=== PATIENT | male | born 1935 | race Caucasian/White ===

== ENCOUNTER 2021-10-16 18:31 | Inpatient (IN) ==
[2021-10-16] MEDS ORDERED: DUONEB NEB ONE ×2 (18:34→19:02)
[2021-10-16] MEDS ORDERED: SOLU-MEDROL 125 MG IVP ONE (18:34)
[2021-10-16] MEDS ORDERED: SODIUM CHLORIDE 500 ML IV STA ×2 (18:34→19:44)
[2021-10-16 18:47] LABS: BASOPHILS # (AUTO) 0.1 K/uL (0-0.2); BASOPHILS % (AUTO) 0.6 % (0.0-3.0); EOSINOPHILS % (AUTO) 0.1 % (0.0-7.0); HEMATOCRIT 38.9 % (42.0-52.0); HEMOGLOBIN 12.8 g/dl (14.0-18.0); IMMATURE GRANULOCYTE % (AUTO) 0.3 % (0.0-5.0); LYMPHOCYTES # (AUTO) 2.3 K/uL (0.60-3.4); LYMPHOCYTES % (AUTO) 22.3 (10.0-50.0); MEAN CORPUSCULAR HEMOGLOBIN 29.5 pg (27.0-31.0); MEAN CORPUSCULAR HGB CONC 32.9 (31.8-35.4); MEAN CORPUSCULAR VOLUME 89.6 fl (80.0-94.0); MONOCYTES # (AUTO) 0.8 K/uL (0.4-2.0); NEUTROPHILS # (AUTO) 6.9 K/ul (2.0-6.9); NEUTROPHILS % (AUTO) 68.7 % (42.2-75.2); PLATELET COUNT 313 10^3/uL (140-440); RDW COEFFICIENT OF VARIATION 13.6 % (11.6-14.8); RED BLOOD COUNT 4.34 10^6/ul (4.70-6.10); WHITE BLOOD COUNT 10.07 K/ul (4.2-10.2)
[2021-10-16] MEDS ORDERED: ZOFRAN 4 MG/2 ML ONE (18:49)
[2021-10-16 18:56] LABS: ABG O2 HGB 95.1 % (95-100); BEecf -4.3 (-2.0-3.0); COHb 0.8 (0.5-1.5); HCO3 23.6 (21-28); MetHb 0.5 (0-1.5); TCO2 25.4 (19-24); sO2 98.4 % (94-98); tHb 13.6 g/dl (11.7-17.4)
[2021-10-16] MEDS: ZOFRAN 4 MG/2 ML IVP ONE ×2 (18:57→19:51)
--- NOTE | 2021-10-16 19:00 | DI ---
EXAM: Single view of the chest. History: Short of breath Findings: Heart size is upper limits of normal. Sternotomy wires. Atherosclerotic vascular calcifi cations. There is interstitial edema and more focal right lower lobe consolidation. Small right ple ural effusion. No pneumothorax. No acute osseous abnormalities. Impression: 1. Interstitial edema. 2. Right lower lobe pneumonia. 3. Small right pleural effusion
[2021-10-16 19:01] LABS: ABG PH 7.21 (7.35-7.45)
[2021-10-16 19:06] LABS: ALANINE AMINOTRANSFERASE 18.2 U/L (0-50); ALBUMIN 4.95 g/dL (3.5-5.0); BILIRUBIN,TOTAL 0.73 mg/dL (0.2-1.3); BLOOD UREA NITROGEN 21.1 mg/dL (9-20); CALCIUM 8.89 mg/dL (8.4-10.2); CARBON DIOXIDE 21.4 mmol/L (22-30.0); CHLORIDE 106.3 mmol/L (98-107); CREATININE 1.03 mg/dL (0.60-1.10); GLUCOSE 237.3 mg/dL (74-106); POTASSIUM 4.43 mmol/L (3.5-5.1); SODIUM 139.3 mmol/L (134.5-145); TOTAL PROTEIN 7.68 g/dL (6.3-8.2)
[2021-10-16 19:18] LABS: TROPONIN I < 0.012 ng/ml (0.0000-0.120)
[2021-10-16] MEDS ORDERED: ROCEPHIN 1 GM/50 ML D5W 1 GM/50 ML BAG IV ONE (19:38)
[2021-10-16] MEDS ORDERED: ZITHROMAX PO ONE (19:38)
[2021-10-16] MEDS ORDERED: LASIX IVP ONE (19:38)
[2021-10-16] MEDS ORDERED: SODIUM BICARBONATE 8.4% IVP ONE ×2 (19:43)
[2021-10-16] MEDS ORDERED: ZOFRAN 4 MG/2 ML IVP ONE (19:56)
[2021-10-16] MEDS ORDERED: MORPHINE 2 MG/ML VIAL IVP STA (19:56)
[2021-10-16] MEDS ORDERED: URO-JET MUCOUSMEMB STA (20:08)
--- NOTE | 2021-10-16 20:29 | CT ---
EXAM: CTA of the chest. History: Persistent shortness of breath Comparison: Chest radiograph 10/16/2021 Technique: Multiplanar CT images through the thorax were obtained following administration of IV con trast. MIP images and 3-D reconstructions were also provided. Findings: Heart is mildly enlarged. No pericardial effusion. Coronary calcifications and sternotom y wires. No thoracic aortic aneurysm. No pulmonary arterial filling defects. No axillary lymphaden opathy. There are mildly enlarged mediastinal and hilar lymph nodes. Interstitial pulmonary edema a nd a small to moderate right pleural effusion and small left pleural effusion. Dependent lung opacit ies represent atelectasis. No pneumothorax. No suspicious lung masses or lung nodules. Within the visualized upper abdomen, no acute findings. Small cyst within the left kidney. Status p ost cholecystectomy. Mild nodular thickening of the bilateral adrenal glands. No acute osseous abno rmalities. Impression: 1. No pulmonary embolism. 2. Cardiomegaly with interstitial pulmonary edema and bilateral pleural effusions. 3. Coronary artery disease 4. Nonspecific enlarged intrathoracic lymph nodes could be reactive or neoplastic. Recommend follow up. 5. Mild nodular thickening of the bilateral adrenal glands is likely benign. Recommend close attent ion to on follow-up All CT scans are performed using dose optimization techniques as appropriate to the performed exam an d include at least one of the following: Automated exposure control, adjustment of the mA and/or kV according t o size, and the use of iterative reconstruction technique.
[2021-10-16 20:38] LABS: ABG O2 HGB 94.1 % (95-100); ABG PH 7.35 (7.35-7.45); BEecf 6.4 (-2.0-3.0); COHb 2.8 (0.5-1.5); HCO3 32 (21-28); MetHb 0.2 (0-1.5); TCO2 33.8 (19-24); sO2 99.1 % (94-98); tHb 12.4 g/dl (11.7-17.4)
[2021-10-17] MEDS ORDERED: DUONEB NEB PRN (04:45)
[2021-10-17] MEDS ORDERED: ZITHROMAX PO ONE ×2 (04:45→09:00)
[2021-10-17] MEDS ORDERED: TYLENOL PO PRN (04:56)
[2021-10-17] MEDS ORDERED: SOLU-MEDROL 125 MG IVP SCH (05:00)
--- NOTE | 2021-10-17 05:04 | ED.PDOC ---
General ED Provider: Dr. DEBORAH JONES MD Chief Complaint: Chest Pain Stated Complaint: left chest pain and severe SOB x this PM. Time Seen by Provider: 10/16/21 18:33 Mode of Arrival: Wheelchair Information Source: Patient Exam Limitations: No limitations Primary Care Provider: ROXANE Duffy Nursing and Triage Documentation Reviewed and Agree: Yes Does patient meet sepsis criteria?: No If yes, has appropriate treatment been initiated?: No System Inflammatory Response Syndrome: Not Applicable Sepsis Protocol: For patient's 13 years and over: Temp is 96.8 and below OR 101 and greater Pulse >90 BPM Resp >20/minute Acutely Altered Mental Status Are patient's symptoms suggestive of a new infection, such as: -Pneumonia -Skin, Soft Tissue -Endocarditis -UTI -Bone, Joint Infection -Implantable Device -Acute Abdominal Infection -Wound Infection -Meningitis -Blood Stream Catheter Infection -Unknown Respiratory Complaint Exam Shortness of Air Complaint/Exam Onset/Duration: this PM Symptoms Are: Worse Timing: Constant and Intermittent Initial Severity: Moderate Current Severity: Moderate Character: Reports Dyspnea at rest Aggravating: Reports None Alleviating: Reports None Associated Signs and Symptoms: Reports Wheezing, Chest pain with cough, Chest pain and Labored breathing History of Healthcare-Acquired Pneumonia: No Cardiac Risk Factors: Reports Elevated lipids and Hypertension Recent Stress Test: No Recent Echo/LV Function: No Respiratory Distress: Moderate Stridor Present: No Tracheal Deviation: No Subcutaneous Emphysema: No Accessory Muscle Use: Yes Retractions: Not Present Unable to Speak Full Sentences: Yes Fatigue: Yes Leg Swelling: No Donte's Sign Present: No Grunting Respirations: No Kussmaul Respirations: No Differential Diagnoses: Asthma, CHF, Pulmonary Edema, COPD Exacerbation, Pneumonia, Pulmonary Embolism, Bronchitis, Bronchospasm and URI Review of Systems Review Of Systems Constitutional: Reports Weakness Respiratory: Reports Short of air Cardiac: Reports Chest pain All Other Systems: Reviewed and Negative [facility] Medical History Angina at rest Coronary artery arteriosclerosis Diabetes mellitus Gastroesophageal reflux disease with hiatal hernia Melanoma Peripheral vascular disease Surgical History History of cholecystectomy History of coronary artery bypass graft Physical Exam Physical Exam Appearance: Reports Ill-appearing Ill-appearing: Moderate Pain Distress: Moderate Eyes: Reports SAMUEL, EOMI and Conjunctiva clear ENT: Reports Ears normal, Nose normal and Oropharynx normal Neck: Supple Respiratory: Reports Breath sounds equal, Crackles, Rhonchi, Wheezes and Retractions Cardiovascular: Reports Tachycardia GI/: Reports Soft, Nontender, No masses and Bowel sounds normal Musculoskeletal: Reports Normal strength and ROM intact Skin: Reports Warm and Dry Neurological: Reports Sensation intact, Motor intact, Reflexes intact, Cranial nerves intact, Alert and Oriented Psychiatric: Reports Affect appropriate and Anxious Interpretation Radiology Interpretation Radiology Interpretation By: Radiologist Radiology Results: Positive Exam Interpreted: CT Scan Xray Comments: see the reports. Re-Evaluation Re-Evaluation Time of Re-Evaluation: 19:28 Status: Unchanged Vital Signs Stable: No Pain Level: 3 Lungs: Other (crackles, rhonchi and wheezes.) Skin: Warm and Dry Neuro: Alert and Oriented X3 CV: RRR Critical Care Note Critical Care Note Total Critical Care Time (mins): 45 Course Course Hematology/Chemistry: 10/16/21 18:12 10/16/21 18:12 Orders, Labs, Meds: Lab Review 10/16/21 10/16/21 10/16/21 18:12 18:12 18:12 WBC 10.07 RBC 4.34 L Hgb 12.8 L Hct 38.9 L MCV 89.6 MCH 29.5 MCHC 32.9 RDW Coeff of Wu 13.6 Plt Count 313 Immature Gran % (Auto) 0.3 Neut % (Auto) 68.7 Lymph % (Auto) 22.3 [place] % (Auto) 8.0 Eos % (Auto) 0.1 Baso % (Auto) 0.6 Neut # (Auto) 6.9 Lymph # (Auto) 2.3 [place] # (Auto) 0.8 Eos # (Auto) 0.0 Baso # (Auto) 0.1 Immature Gran # (Auto) 0.0 Puncture Site Base Excess O2 Saturation ABG pH ABG pCO2 ABG pO2 ABG HCO3 ABG Total CO2 Lorenzo Test Hemoglobin Oxyhemoglobin Carboxyhemoglobin Total Hemoglobin O2 Delivery Device Oxygen Liter Flow FiO2 % Sodium 139.3 Potassium 4.43 Chloride 106.3 Carbon Dioxide 21.4 L Anion Gap 16.03 BUN 21.1 H Creatinine 1.03 Estimated GFR (MDRD) 69.00 BUN/Creatinine Ratio 20.48 Glucose 237.3 H Lactic Acid 2.42 H Calcium 8.89 Total Bilirubin 0.73 AST 22.0 ALT 18.2 Alkaline Phosphatase 113.0 Troponin I < 0.012 NT-Pro-B Natriuret Pep 1450.000 H Total Protein 7.68 Albumin 4.95 Globulin 2.73 Albumin/Globulin Ratio 1.81 SARS-CoV-2 Ag (Rapid) 10/16/21 10/16/21 10/16/21 18:50 20:30 20:50 WBC RBC Hgb Hct MCV MCH MCHC RDW Coeff of Wu Plt Count Immature Gran % (Auto) Neut % (Auto) Lymph % (Auto) [place] % (Auto) Eos % (Auto) Baso % (Auto) Neut # (Auto) Lymph # (Auto) [place] # (Auto) Eos # (Auto) Baso # (Auto) Immature Gran # (Auto) Puncture Site Rr [place] Excess -4.3 L 6.4 H O2 Saturation 98.4 H 99.1 H ABG pH 7.21 L* 7.35 ABG pCO2 59.0 H 58.0 H ABG pO2 133.0 H 140.0 H ABG HCO3 23.6 32 H ABG Total CO2 25.4 H 33.8 H Lorenzo Test + + Hemoglobin 0.5 0.2 Oxyhemoglobin 95.1 94.1 L Carboxyhemoglobin 0.8 2.8 H Total Hemoglobin 13.6 12.4 O2 Delivery Device Non rebreather Nrb Oxygen Liter Flow 15.00 15.00 FiO2 % 100.0 100.0 Sodium Potassium Chloride Carbon Dioxide Anion Gap BUN Creatinine Estimated GFR (MDRD) BUN/Creatinine Ratio Glucose Lactic Acid Calcium Total Bilirubin AST ALT Alkaline Phosphatase Troponin I NT-Pro-B Natriuret Pep Total Protein Albumin Globulin Albumin/Globulin Ratio SARS-CoV-2 Ag (Rapid) Negative Orders Category Date Time Status ABG DRAW REQUEST Stat CARDIO 10/16/21 18:35 Completed ABG DRAW REQUEST Stat CARDIO 10/16/21 20:30 Completed EKG-(ED ONLY) Stat CARDIO 10/16/21 18:34 Completed VAPOTHERM Routine CARDIO 10/16/21 19:02 Ordered NPO REMINDER: IMAGING ONCE CARE 10/16/21 18:49 Completed ED CATHETER INSERTION AND CARE .ONCE EMERGENCY 10/16/21 20:08 Active Saline Lock [ED IV/MEDIPORT/POWERPORT] .ONCE EMERGENCY 10/16/21 18:34 Active ABG COOX Stat LAB 10/16/21 18:50 Completed ABG COOX Stat LAB 10/16/21 20:30 Completed BLOOD CULTURE (ED ONLY) Stat LAB 10/16/21 20:07 Received CBC W/ AUTO DIFF Stat LAB 10/16/21 18:12 Completed COMPREHENSIVE METABOLIC PANEL Stat LAB 10/16/21 18:12 Completed COVID-19 ANTIGEN TEST Stat LAB 10/16/21 20:50 Completed LACTIC ACID Stat LAB 10/16/21 18:12 Completed NT-PROBNP Stat LAB 10/16/21 18:12 Completed TROPONIN I Stat LAB 10/16/21 18:12 Completed 0.9 % Sodium Chloride [Saline Flush] MEDS 10/16/21 18:34 Active 1 syr IVF PRN PRN Azithromycin [Zithromax] MEDS 10/16/21 19:38 Discontinued 500 mg PO ONCE ONE Ceftriaxone/D5w 1 gm Premix [Rocephin 1 gm/50 ml D5w] MEDS 10/16/21 19:38 Discontinued 1 gm in 50 ml IV ONCE Furosemide [Lasix] MEDS 10/16/21 19:38 Discontinued 80 mg IVP ONCE ONE Ipratropium/Albuterol Neb [Duoneb] MEDS 10/16/21 18:34 Discontinued 3 ml NEB ONCE ONE Ipratropium/Albuterol Neb [Duoneb] MEDS 10/16/21 19:02 Discontinued 3 ml NEB ONCE ONE Lidocaine (Uro-Jet) [Uro-Jet] MEDS 10/16/21 20:08 Discontinued 10 ml MUCOUSMEMB ONCE STA Methylprednisolone Sod Succ/Pf [Solu-Medrol 125 mg] MEDS 10/16/21 18:34 Discontinued 125 mg IVP ONCE ONE Morphine Sulfate [Morphine 2 mg/ml Vial] MEDS 10/16/21 19:56 Discontinued 2 mg IVP ONCE STA Ondansetron HCl/Pf [Zofran 4 mg/2 ml] MEDS 10/16/21 18:49 Discontinued 4 mg .ROUTE .STK-MED ONE Ondansetron HCl/Pf [Zofran 4 mg/2 ml] MEDS 10/16/21 18:48 Discontinued 4 mg IVP ONCE ONE Ondansetron HCl/Pf [Zofran 4 mg/2 ml] MEDS 10/16/21 19:56 Discontinued 4 mg IVP ONCE ONE Sodium Bicarb 8.4% Syringe [Sodium Bicarbonate 8.4%] MEDS 10/16/21 19:43 Discontinued 50 meq IVP ONCE ONE Sodium Bicarb 8.4% Syringe [Sodium Bicarbonate 8.4%] MEDS 10/16/21 19:43 Discontinued 50 meq IVP ONCE ONE Sodium Chloride 0.9% [Sodium Chloride] 500 ml MEDS 10/16/21 18:34 Discontinued IV BOLUS Sodium Chloride 0.9% [Sodium Chloride] 500 ml MEDS 10/16/21 19:44 Discontinued IV BOLUS CTA ANGIO CHEST Stat RADS 10/16/21 18:48 Completed CXR [CHEST, 1V AP ONLY] Stat RADS 10/16/21 18:34 Completed Medications Generic Name Dose Route Start Last Admin Trade Name Freq PRN Reason Stop Dose Admin Albuterol/Ipratropium 3 ml 10/17/21 04:45 Ipratropium/Albuterol Vial.Navin NEB RTQ6H PRN Wheezing Furosemide 40 mg 10/17/21 06:30 Furosemide Inj 40 Mg/4 Ml Vial IVP BIDAC HERBERT CEFTRIAXONE/D5W 1 GM PREMIX 1 gm in 50 mls @ 75 mls/hr 10/17/21 09:00 Rocephin 1 Gm/50 Ml D5w IV 10/20/21 08:59 DAILY HERBERT Methylprednisolone Sodium Succinate 125 mg 10/17/21 05:00 Methylprednisolone Sod Succ/Pf 125 Mg/2 Ml Vial IVP Q8HR HERBERT Sodium Chloride 1 syr 10/16/21 18:34 10/16/21 19:52 0.9% Sodium Chloride 10 Ml Disp.Syrin IVF 1 syr PRN PRN Administration To flush IV Sodium Chloride 1 syr 10/17/21 05:00 0.9% Sodium Chloride 10 Ml Disp.Syrin IVF Q8HR HERBERT Discontinued Medications Generic Name Dose Route Start Last Admin Trade Name Freq PRN Reason Stop Dose Admin Albuterol/Ipratropium 3 ml 10/16/21 18:34 10/16/21 18:57 Ipratropium/Albuterol Vial.Navin CABRALES 10/16/21 18:35 3 ml ONCE ONE Administration Albuterol/Ipratropium 3 ml 10/16/21 19:02 10/16/21 19:33 Ipratropium/Albuterol Vial.Navin [facility] 10/16/21 19:03 3 ml ONCE ONE Administration Azithromycin 500 mg 04/26/22 19:38 10/16/21 21:18 Azithromycin 250 Mg Tablet PO 10/16/21 19:39 500 mg ONCE ONE Administration Azithromycin 500 mg 10/17/21 04:45 Azithromycin 250 Mg Tablet PO 10/17/21 04:46 ONCE ONE Furosemide 80 mg 10/16/21 19:38 10/16/21 19:51 Furosemide Inj 100 Mg/10 Ml Vial IVP 10/16/21 19:39 80 mg ONCE ONE Administration Sodium Chloride 500 mls @ 500 mls/hr 10/16/21 18:34 10/16/21 21:19 Sodium Chloride IV 10/16/21 19:33 500 mls/hr BOLUS STA Administration CEFTRIAXONE/D5W 1 GM PREMIX 1 gm in 50 mls @ 75 mls/hr 10/16/21 19:38 10/16/21 20:08 Rocephin 1 Gm/50 Ml D5w IV 10/16/21 20:17 75 mls/hr ONCE ONE Administration Sodium Chloride 500 mls @ 500 mls/hr 10/16/21 19:44 10/16/21 21:35 Sodium Chloride IV 10/16/21 20:43 500 mls/hr BOLUS STA Administration Lidocaine HCl 10 ml 10/16/21 20:08 10/16/21 21:36 Lidocaine 10 Ml Jel.Pf.Day (Urojet) MUCOUSMEMB 10/16/21 20:09 10 ml ONCE STA Administration Methylprednisolone Sodium Succinate 125 mg 10/16/21 18:34 10/16/21 18:57 Methylprednisolone Sod Succ/Pf 125 Mg/2 Ml Vial IVP 10/16/21 18:35 125 mg ONCE ONE Administration Morphine Sulfate 2 mg 10/16/21 19:56 10/16/21 20:04 Morphine Sulfate 2 Mg/Ml Vial IVP 10/16/21 19:57 2 mg ONCE STA Administration Ondansetron HCl 4 mg 10/16/21 18:48 10/16/21 19:51 Ondansetron Hcl/Pf 4 Mg/2 Ml Sdv IVP 10/16/21 18:49 4 mg ONCE ONE Administration Ondansetron HCl 4 mg 10/16/21 19:56 10/16/21 21:34 Ondansetron Hcl/Pf 4 Mg/2 Ml Sdv IVP 10/16/21 19:57 4 mg ONCE ONE Administration Sodium Bicarbonate 50 meq 10/16/21 19:43 10/16/21 19:51 Sodium Bicarbonate 50 Meq/50 Ml Disp.Syrin IVP 10/16/21 19:44 50 meq ONCE ONE Administration Sodium Bicarbonate 50 meq 10/16/21 19:43 10/16/21 19:51 Sodium Bicarbonate 50 Meq/50 Ml Disp.Syrin IVP 10/16/21 19:44 50 meq ONCE ONE Administration Vital Signs: Temp Pulse Resp BP Pulse Ox 10/17/21 02:15 96 10/16/21 21:54 100 10/16/21 19:31 100 10/16/21 18:44 97.8 F 93 H 18 178/106 H 100 Discharge Plan Discharge Patient Disposition: ADMITTED INPATIENT Discharge Problem: Chest pain, CHF (congestive heart failure), Pneumonia ED Provider: DEBORAH JONES Condition: Serious Physician Progress Note: []Pt was ill but stable. He was d/w Hospitalist but not accepted for transfer. Pt for admission here with consult to Dr Hahn.
[2021-10-17 05:53] VITALS: BMI 26.3
[2021-10-17 06:00] LABS: HEMATOCRIT 33.4 % (42.0-52.0); HEMOGLOBIN 11.3 g/dl (14.0-18.0); MEAN CORPUSCULAR HEMOGLOBIN 29.4 pg (27.0-31.0); MEAN CORPUSCULAR HGB CONC 33.8 (31.8-35.4); PLATELET COUNT 214 10^3/uL (140-440); RDW COEFFICIENT OF VARIATION 13.6 % (11.6-14.8); RED BLOOD COUNT 3.84 10^6/ul (4.70-6.10); WHITE BLOOD COUNT 7.95 K/ul (4.2-10.2)
[2021-10-17 06:11] LABS: ANISOCYTOSIS NOT PRESENT (NOT PRESENT)
[2021-10-17 06:15] LABS: ALANINE AMINOTRANSFERASE 17.8 U/L (0-50); ALBUMIN 4.38 g/dL (3.5-5.0); ALKALINE PHOSPHATASE 72.4 U/L (56-119); BILIRUBIN,TOTAL 0.72 mg/dL (0.2-1.3); BLOOD UREA NITROGEN 20.9 mg/dL (9-20); CALCIUM 8.49 mg/dL (8.4-10.2); CARBON DIOXIDE 25.9 mmol/L (22-30.0); CHLORIDE 102.6 mmol/L (98-107); CREATININE 1.06 mg/dL (0.60-1.10); GLUCOSE 230.2 mg/dL (74-106); POTASSIUM 3.95 mmol/L (3.5-5.1); SODIUM 136.7 mmol/L (134.5-145); TOTAL PROTEIN 6.8 g/dL (6.3-8.2)
[2021-10-17 06:17] LABS: ABG O2 HGB 94.9 % (95-100); COHb 1.7 (0.5-1.5); HCO3 26.5 (21-28); MetHb 0.4 (0-1.5); TCO2 27.5 (19-24); sO2 99.8 % (94-98); tHb 11.7 g/dl (11.7-17.4)
[2021-10-17 06:18] LABS: ABG PH 7.54 (7.35-7.45)
[2021-10-17] MEDS ORDERED: LASIX IVP SCH (06:30)
[2021-10-17] MEDS ORDERED: ASPIRIN EC PO SCH (08:30)
[2021-10-17] MEDS ORDERED: COREG PO SCH (08:30)
[2021-10-17 08:38] LABS: TROPONIN I 0.052 ng/ml (0.0000-0.120)
[2021-10-17] MEDS ORDERED: ZETIA PO SCH (09:00)
[2021-10-17] MEDS ORDERED: IMDUR PO SCH (09:00)
[2021-10-17] MEDS ORDERED: RANEXA PO SCH (09:00)
[2021-10-17] MEDS ORDERED: COZAAR PO SCH (09:00)
[2021-10-17] MEDS ORDERED: PRASUGREL 10 MG PO SCH (09:00)
[2021-10-17] MEDS ORDERED: FERROUS SULFATE PO SCH (09:00)
[2021-10-17] MEDS ORDERED: LOPID PO SCH (09:00)
[2021-10-17] MEDS ORDERED: NORVASC PO SCH (09:00)
[2021-10-17] MEDS ORDERED: LIPITOR PO SCH (09:00)
[2021-10-17] MEDS: NITROSTAT SL PRN ×4 (09:36→10:40)
[2021-10-17] MEDS ORDERED: ZOFRAN 4 MG/2 ML IVP PRN (09:39)
[2021-10-17] MEDS ORDERED: ZOFRAN 4 MG/2 ML IVP ONE (09:39)
[2021-10-17] MEDS ORDERED: MORPHINE 4 MG/ML SYRINGE IVP STA (09:40)
[2021-10-17 09:47] VITALS: BP 160/78; TEMP 98.5
[2021-10-17] MEDS ORDERED: MORPHINE 2 MG/ML VIAL IVP ONE (10:00)
[2021-10-17 10:09] LABS: ABG PH 7.52 (7.35-7.45)
[2021-10-17 10:10] LABS: ABG O2 HGB 92.8 % (95-100); BEecf 0 (-2.0-3.0); COHb 0.8 (0.5-1.5); HCO3 22.9 (21-28); MetHb 0.6 (0-1.5); TCO2 23.8 (19-24); sO2 94.3 % (94-98); tHb 12.4 g/dl (11.7-17.4)
[2021-10-17] MEDS ORDERED: NITROGLYCERIN 25 MG/250 ML IV SCH (10:30)
[2021-10-17] MEDS ORDERED: [UNRECOGNIZED DRUG - OTHER] IV SCH (10:30)
[2021-10-17] MEDS ORDERED: LASIX IVP STA ×2 (11:00→11:09)
[2021-10-17] MEDS ORDERED: DECADRON ONE (11:02)
[2021-10-17] MEDS ORDERED: LASIX ONE (11:02)
[2021-10-17] MEDS ORDERED: LASIX IM STA (11:02)
[2021-10-17] MEDS ORDERED: DECADRON IVP ONE (11:02)
[2021-10-17] MEDS ORDERED: LOPRESSOR IVP ONE (11:06)
[2021-10-17] MEDS ORDERED: HUMULIN R IV ONE (11:21)
[2021-10-17] MEDS ORDERED: HUMULIN R ONE (11:28)
[2021-10-17] MEDS ORDERED: ROCEPHIN 1 GM/50 ML D5W 1 GM/50 ML BAG IV SCH (21:00)
--- NOTE | 2021-10-18 23:10 | PCM.DC ---
Final Diagnosis: Acute Coronary Syndrome Admit and Discharge on 10/17/21 Physical Exam Appearance: Ill-appearing Ill-appearing: Mild Pain Distress: Moderate Eyes: SAMUEL ENT: Oropharynx normal Neck: Supple Respiratory: Breath sounds diminished and Crackles Cardiovascular: RRR GI/: Soft and Nontender Musculoskeletal: Limited ROM and Limited strength Skin: Warm and Dry Neurological: Sensation intact, Motor intact and Alert Psychiatric: Affect appropriate, Mood appropriate and Anxious (1) Acute coronary syndrome: Status: Acute Code(s): I24.9 - Acute ischemic heart disease, unspecified SNOMED Code(s): 137892254 (2) CHF (congestive heart failure): Status: Acute Code(s): I50.9 - Heart failure, unspecified SNOMED Code(s): 33302222 Reason for Hospitalization: Admit with CHF exacerbation, and possible mild pneumonia. Prognosis/Condition at Discharge: Fair, guarded. Medications at Discharge: Ambulatory Orders Medication Instructions Recorded amlodipine 2.5 mg tablet (Norvasc) 10 mg PO DAILY 09/14/13 aspirin 81 mg tablet,delayed 1 tab PO DAILY 09/14/13 release atorvastatin 80 mg tablet (Lipitor) 40 mg PO DAILY 09/14/13 carvedilol 6.25 mg tablet 1 tab PO BID 09/14/13 ezetimibe 10 mg tablet (Zetia) 1 tab PO DAILY 09/14/13 gemfibrozil 600 mg tablet 1 tab PO BID 09/14/13 losartan 50 mg tablet 1 tab PO DAILY 09/14/13 metformin 500 mg tablet 1 tab PO BID 09/14/13 buczmgcv-lxb-udgyn 200 mcg-lycop 1 tab PO DAILY 09/14/13 175 mcg-lutei 250 mcg-herb 178 tablet (Sg Multivitamin For Men) fznpmqga-asm-giefo acid 0.4 1 tab PO DAILY 09/14/13 mg-lycopene 300 mcg-lutein 250 mcg tablet (Centrum Silver) omeprazole 20 mg capsule,delayed 1 tab PO DAILY 09/14/13 release sitagliptin 100 mg tablet (Januvia) 1 tab PO DAILY 09/14/13 vit C 150 mg-vit E 30 unit-lutein 1 tab PO DAILY 09/14/13 5 xl-vozrlagc-dkfxb 3 150 mg capsule ferrous sulfate 325 mg (65 mg 325 mg PO DAILY 10/16/21 iron) tablet (Iron (ferrous sulfate)) glimepiride 1 mg tablet 1 mg PO 2 TIMES PER WEEK 10/16/21 isosorbide mononitrate 120 mg 120 mg PO DAILY 10/16/21 tablet,extended release 24 hr ranolazine 1,000 mg 1,000 mg PO DAILY 10/16/21 tablet,extended release,12 hr icosapent ethyl 1 gram capsule 1 g PO BID 10/17/21 (Vascepa) pantoprazole 40 mg tablet,delayed 40 mg PO DAILY 10/17/21 release (Protonix) prasugrel 5 mg tablet (Effient) 5 mg PO DAILY 10/17/21 Lab/Diagnostics: Laboratory Tests 10/16/21 10/16/21 10/16/21 18:12 18:12 18:12 WBC 10.07 RBC 4.34 L Hgb 12.8 L Hct 38.9 L MCV 89.6 MCH 29.5 MCHC 32.9 RDW Coeff of Wu 13.6 Plt Count 313 Immature Gran % (Auto) 0.3 Neut % (Auto) 68.7 Lymph % (Auto) 22.3 [place] % (Auto) 8.0 Eos % (Auto) 0.1 Baso % (Auto) 0.6 Neut # (Auto) 6.9 Lymph # (Auto) 2.3 [place] # (Auto) 0.8 Eos # (Auto) 0.0 Baso # (Auto) 0.1 Immature Gran # (Auto) 0.0 Neutrophils % (Manual) Lymphocytes % (Manual) Monocytes % (Manual) Anisocytosis Puncture Site Base Excess O2 Saturation ABG pH ABG pCO2 ABG pO2 ABG HCO3 ABG Total CO2 Lorenzo Test Hemoglobin Oxyhemoglobin Carboxyhemoglobin Total Hemoglobin O2 Delivery Device Oxygen Liter Flow FiO2 % Sodium 139.3 Potassium 4.43 Chloride 106.3 Carbon Dioxide 21.4 L Anion Gap 16.03 BUN 21.1 H Creatinine 1.03 Estimated GFR (MDRD) 69.00 BUN/Creatinine Ratio 20.48 Glucose 237.3 H Lactic Acid 2.42 H Calcium 8.89 Total Bilirubin 0.73 AST 22.0 ALT 18.2 Alkaline Phosphatase 113.0 Total Creatine Kinase Troponin I < 0.012 NT-Pro-B Natriuret Pep 1450.000 H Total Protein 7.68 Albumin 4.95 Globulin 2.73 Albumin/Globulin Ratio 1.81 SARS-CoV-2 Ag (Rapid) 10/16/21 10/16/21 10/16/21 18:50 20:30 20:50 WBC RBC Hgb Hct MCV MCH MCHC RDW Coeff of Wu Plt Count Immature Gran % (Auto) Neut % (Auto) Lymph % (Auto) [place] % (Auto) Eos % (Auto) Baso % (Auto) Neut # (Auto) Lymph # (Auto) [place] # (Auto) Eos # (Auto) Baso # (Auto) Immature Gran # (Auto) Neutrophils % (Manual) Lymphocytes % (Manual) Monocytes % (Manual) Anisocytosis Puncture Site Rr [place] Excess -4.3 L 6.4 H O2 Saturation 98.4 H 99.1 H ABG pH 7.21 L* 7.35 ABG pCO2 59.0 H 58.0 H ABG pO2 133.0 H 140.0 H ABG HCO3 23.6 32 H ABG Total CO2 25.4 H 33.8 H Lorenzo Test + + Hemoglobin 0.5 0.2 Oxyhemoglobin 95.1 94.1 L Carboxyhemoglobin 0.8 2.8 H Total Hemoglobin 13.6 12.4 O2 Delivery Device Non rebreather Nrb Oxygen Liter Flow 15.00 15.00 FiO2 % 100.0 100.0 Sodium Potassium Chloride Carbon Dioxide Anion Gap BUN Creatinine Estimated GFR (MDRD) BUN/Creatinine Ratio Glucose Lactic Acid Calcium Total Bilirubin AST ALT Alkaline Phosphatase Total Creatine Kinase Troponin I NT-Pro-B Natriuret Pep Total Protein Albumin Globulin Albumin/Globulin Ratio SARS-CoV-2 Ag (Rapid) Negative 10/17/21 10/17/21 10/17/21 05:55 05:55 05:55 WBC 7.95 RBC 3.84 L Hgb 11.3 L Hct 33.4 L MCV 87.0 MCH 29.4 MCHC 33.8 RDW Coeff of Wu 13.6 Plt Count 214 D Immature Gran % (Auto) Neut % (Auto) Lymph % (Auto) [place] % (Auto) Eos % (Auto) Baso % (Auto) Neut # (Auto) Lymph # (Auto) [place] # (Auto) Eos # (Auto) Baso # (Auto) Immature Gran # (Auto) Neutrophils % (Manual) 89.0 H Lymphocytes % (Manual) 7.0 L Monocytes % (Manual) 4.0 Anisocytosis Not present Puncture Site Lbrac Base Excess 4.0 H O2 Saturation 99.8 H ABG pH 7.54 H* ABG pCO2 31.0 L ABG pO2 193.0 H ABG HCO3 26.5 ABG Total CO2 27.5 H Lorenzo Test + Hemoglobin 0.4 Oxyhemoglobin 94.9 L Carboxyhemoglobin 1.7 H Total Hemoglobin 11.7 O2 Delivery Device Vapotherm Oxygen Liter Flow FiO2 % 60.0 Sodium 136.7 Potassium 3.95 Chloride 102.6 Carbon Dioxide 25.9 Anion Gap 12.15 BUN 20.9 H Creatinine 1.06 Estimated GFR (MDRD) 67.00 BUN/Creatinine Ratio 19.71 Glucose 230.2 H Lactic Acid Calcium 8.49 Total Bilirubin 0.72 AST 21.0 ALT 17.8 Alkaline Phosphatase 72.4 D Total Creatine Kinase Troponin I NT-Pro-B Natriuret Pep Total Protein 6.80 Albumin 4.38 Globulin 2.42 Albumin/Globulin Ratio 1.80 SARS-CoV-2 Ag (Rapid) 10/17/21 10/17/21 08:11 09:51 WBC RBC Hgb Hct MCV MCH MCHC RDW Coeff of Wu Plt Count Immature Gran % (Auto) Neut % (Auto) Lymph % (Auto) [place] % (Auto) Eos % (Auto) Baso % (Auto) Neut # (Auto) Lymph # (Auto) [place] # (Auto) Eos # (Auto) Baso # (Auto) Immature Gran # (Auto) Neutrophils % (Manual) Lymphocytes % (Manual) Monocytes % (Manual) Anisocytosis Puncture Site Rrad Base Excess 0 O2 Saturation 94.3 ABG pH 7.52 H* ABG pCO2 28.0 L ABG pO2 64.0 L ABG HCO3 22.9 ABG Total CO2 23.8 Lorenzo Test + Hemoglobin 0.6 Oxyhemoglobin 92.8 L Carboxyhemoglobin 0.8 Total Hemoglobin 12.4 O2 Delivery Device [place]apo Oxygen Liter Flow FiO2 % 40.0 Sodium Potassium Chloride Carbon Dioxide Anion Gap BUN Creatinine Estimated GFR (MDRD) BUN/Creatinine Ratio Glucose Lactic Acid Calcium Total Bilirubin AST ALT Alkaline Phosphatase Total Creatine Kinase 57.0 Troponin I 0.052 NT-Pro-B Natriuret Pep Total Protein Albumin Globulin Albumin/Globulin Ratio SARS-CoV-2 Ag ([place]) [place] [address] Report : [id number] Signed Patient: CATE VALLEJO JR Acct:[id number] Medical Record: [id number] : 1935 Loc: ED Room/Bed: Age/Sex: 85 / M ADM Status: REG ER Date of Service: 10/16/21 Ordering Physician: DEBORAH JONES MD Procedure(s): CTA ANGIO CHEST Report Number(s): [id number] Accession Number(s): [id number] cc: DEBORAH JONES MD; ROXANE Duffy EXAM: CTA of the chest. History: Persistent shortness of breath Comparison: Chest radiograph 10/16/2021 Technique: Multiplanar CT images through the thorax were obtained following administration of IV contrast. MIP images and 3-D reconstructions were also provided. Findings: Heart is mildly enlarged. No pericardial effusion. Coronary c alcifications and sternotomy wires. No thoracic aortic aneurysm. No pulmonary arterial filling defects. No axillary lymphadenopathy. There are mildly enlarged mediastinal and hilar lymph nodes. Interstitial pulmonary edema and a small to moderate right pleural effusion and small left pleural effusion. Dependent lung opacities represent atelectasis. No pneumothorax. No suspicious lung masses or lung nodules. Within the visualized upper abdomen, no acute findings. Small cyst within the left kidney. Status post cholecystectomy. Mild nodular thickening of the bilateral adrenal glands. No acute osseous abnormalities. Impression: 1. No pulmonary embolism. 2. Cardiomegaly with interstitial pulmonary edema and bilateral pleural effusions. 3. Coronary artery disease 4. Nonspecific enlarged intrathoracic lymph nodes could be reactive or neoplastic. Recommend followup. 5. Mild nodular thickening of the bilateral adrenal glands is likely benign. Recommend close attention to on follow-up. EKG #1 - Sinus tach at 110. No ectopy. Normal axes, ST depression 2 mm inf. and lat. leads. EKG #2 - Sinut tach at 104 with no ectopy. Normal axes. ST depression about 1 mm inf and lat leads. Follow-ups: Transfer to [facility] Discharge Disposition: Transfer Hospital Course: Patient admitted with CHF exacerbation. DNI code status. After admit and appropriate diuresis, he developed chest pain. EKG revealed NSR with ST depression in inf and lat leads c/w ischemia. ASA given. Treatment with NTG SL, then IV . Lasix IV. Morphine IV. Heparin bolus. BP remained in normal range. Accepted in transfer to [facility]. Patient improved while here. Oxygen maintained with sat over 92 % on vapotherm per RT settings. Critical Care time 60 minutes. This discharge summary performed with a [id number] exam. Plan: Transfer via EMS to [facility] for direct admit.
== END 2021-10-17 12:14 | disposition short-term general hospital (02) | DRG 311 ==
LOC: ED 18:31 → MEDSURG A 10-17 03:48
PROVIDERS: ADMIT Emergency Medicine; ATTEND Emergency Medicine
DX: Z99.81 Dependence on supplemental oxygen; R06.2 Wheezing; I10 Essential (primary) hypertension; Z79.899 Other long term (current) drug therapy; Z51.81 Encounter for therapeutic drug level monitoring; I50.9 Heart failure, unspecified; J18.9 Pneumonia, unspecified organism; R05.9 Cough, unspecified; Z20.822 Contact with and (suspected) exposure to COVID-19; R06.02 Shortness of breath; I24.9 Acute ischemic heart disease, unspecified; R53.1 Weakness